=== PATIENT | female | born 2000 | race Caucasian/White ===

== ENCOUNTER 2021-10-05 13:37 | Outpatient (CLI) | payer BC | END 2021-10-05 13:38 | disposition home or self-care (01) | LOC: BICULT 13:37 | PROVIDERS: ATTEND Internal Medicine | DX: N63.11 Unspecified lump in the right breast, upper outer quadrant (principal) ==

== ENCOUNTER 2025-05-07 07:43 | Outpatient (CLI) | payer BC | END 2025-05-07 07:44 | disposition home or self-care (01) | LOC: NM 07:43 | PROVIDERS: ATTEND Internal Medicine Endocrinology, Diabetes & Metabolism | DX: E05.80 Other thyrotoxicosis without thyrotoxic crisis or storm (principal); R94.8 Abnormal results of function studies of other organs and systems | CPT/HCPCS: 78014; A9516 ==